=== PATIENT | female | born 1960 | race Caucasian/White ===

== ENCOUNTER 2017-03-27 11:21 | Outpatient (CLI) | payer OTHER ==
[2015-10-08 17:11] VITALS: BP 168/84
[2017-03-27 11:48] LABS: BASOPHILS % 0.6 (0.0-1.5); EOSINOPHILS % 6.3 % (0.0-6.8); MEAN CORPUSCULAR HEMOGLOBIN 30.4 pg (28.0-34.0); MEAN CORPUSCULAR VOLUME 89.3 fl (80.0-100.0); MONOCYTES % 3.6 % (0.0-11.0); NEUTROPHILS # 4.8 # k/uL (1.4-7.7)
[2017-03-27 12:03] LABS: eGFR (African) > 60; eGFR (Non-African) > 60
== END 2017-03-27 11:22 ==
LOC: LAB 11:21
PROVIDERS: ATTEND Physician Assistant
DX: R53.83 Other fatigue (principal); R23.2 Flushing
CPT/HCPCS: 36415; 80053; 82306; 84443; 85025